=== PATIENT | female | born 1930 | race Caucasian/White ===

== ENCOUNTER 2018-06-06 16:38 | Emergency (ER) | payer MEDICARE, OTHER ==
[~2018-06-06] VITALS: Ht 152.4 cm; Wt 54.4 kg
[~2018-06-06 16:38] MED LIST: AMLODIPINE BESYL5 MG PO; DONEPEZIL HCL10 MG PO; DULOXETINE HCL60 MG PO; FUROSEMIDE20 MG PO; LANTUS SOL100 UNIT/1 SUB-Q; METOPROLOL SUC100 MG PO; TROSPIUM CHLORI20 MG PO; WELCHOL625 MG PO
== END 2018-06-06 18:07 | disposition home or self-care (01) ==
LOC: ED 16:38
DX: S00.01XA Abrasion of scalp, initial encounter (principal); W01.198A Fall on same level from slipping, tripping and stumbling with subsequent striking against other object, initial encounter; E11.9 Type 2 diabetes mellitus without complications; I10 Essential (primary) hypertension; Z79.899 Other long term (current) drug therapy
CPT/HCPCS: 90471; 90714; 99283-25

== ENCOUNTER 2018-07-20 16:45 | Emergency (ER) | payer MEDICARE, OTHER ==
[~2018-07-20] VITALS: Ht 152.4 cm; Wt 54.4 kg
--- NOTE | 2018-07-21 15:39 | EKG ---
[facility] [address] [facility] [place], [place] [address] Signed Sinus rhythm with sinus arrhythmia with 1st degree AV block Right bundle branch block T wave abnormality, consider inferolateral ischemia Abnormal ECG No previous ECGs available Confirmed by ROBI MARLEY DO ([id number]) on 07/21/2018 3:38:56 PM Electronically Signed By: ROBI MARLEY DO 07/21/18 1539 PATIENT NAME: ROSARIO DURHAM [facility] Electrocardiogram DATE OF : [birth year] PHYSICIAN: ROBI MARLEY DO REPORT #: [id number] REPORT IS CONFIDENTIAL AND NOT TO BE RELEASED WITHOUT AUTHORIZATION
== END 2018-07-20 19:15 | disposition home or self-care (01) ==
LOC: ED 16:45
DX: E11.65 Type 2 diabetes mellitus with hyperglycemia (principal); I10 Essential (primary) hypertension; Z90.710 Acquired absence of both cervix and uterus; Z79.899 Other long term (current) drug therapy; W18.30XA Fall on same level, unspecified, initial encounter
CPT/HCPCS: 36415; 80053; 81001; 85025; 87077; 87088; 87186; 93005; 93010; 99284-25

== ENCOUNTER 2019-01-15 16:40 | Emergency (ER) | payer MEDICARE, OTHER | END 2019-01-15 20:05 | disposition home or self-care (01) | LOC: ED 16:40 | PROC: 0HQ0XZZ Repair Scalp Skin, External Approach (ICD-10-PCS; principal; 2019-01-15) | DX: S01.01XA Laceration without foreign body of scalp, initial encounter (principal); W18.30XA Fall on same level, unspecified, initial encounter; E11.9 Type 2 diabetes mellitus without complications; I10 Essential (primary) hypertension; Z79.899 Other long term (current) drug therapy | CPT/HCPCS: 12001; 70450; 85025; 99283-25 ==

== ENCOUNTER 2019-01-24 15:02 | Emergency (ER) | payer MEDICARE, OTHER ==
[~2019-01-24] VITALS: Ht 152.4 cm; Wt 54.4 kg
--- OUTSIDE RECORDS SUMMARY | 2019-01-24 15:04 | XMS ---
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 [facility] has no Care Guidelines for this patient. [place] VISIT COUNT (12 MO.) 4 [facility] [place] [facility] TOTAL 4 NOTE: Visits indicate total known visits. ED/[facility] VISIT TRACKING (12 MO.) 01/24/2019 15:[address] [facility] [place] TYPE: Emergency COMPLAINT: - STAPLE REMOVAL 01/15/2019 16:41 [facility] [place] TYPE: Emergency COMPLAINT: - FALL HEAD INJURY DIAGNOSES: - 1 Type 2 diabetes mellitus without complications - Essential (primary) hypertension - Fall on same level, unspecified, initial encounter - Laceration without foreign body of scalp, initial encounter - Other assisted (current) drug therapy 07/20/2018 16:45 [facility] [place] TYPE: Emergency COMPLAINT: - FALL DIAGNOSES: - Acquired absence of both cervix and uterus - Other meterman (current) drug therapy - Pain in left forearm - 1 Type 2 diabetes mellitus with hyperglycemia - Fall on same level, unspecified, initial encounter - Essential (primary) hypertension 06/06/2018 16:38 [facility] [place] TYPE: Emergency COMPLAINT: - FALL, HEAD LAC DIAGNOSES: - Other assisted (current) drug therapy - Essential (primary) hypertension - Abrasion of scalp, initial encounter - 1 Type 2 diabetes mellitus without complications - Fall same lev from slip[facility] object, init INPATIENT VISIT TRACKING (12 MO.) No inpatient visits to display in this time frame [email or web address]
== END 2019-01-24 15:26 | disposition home or self-care (01) ==
LOC: ED 15:02
DX: S01.01XD Laceration without foreign body of scalp, subsequent encounter (principal)

== ENCOUNTER 2019-04-04 19:54 | Emergency (ER) | payer MEDICARE, OTHER ==
[~2019-04-04] VITALS: Ht 152.4 cm; Wt 54.4 kg
[2019-04-04] MEDS ORDERED: CYMBALTA20 MG PO (23:49)
== END 2019-04-05 00:25 | disposition home or self-care (01) ==
LOC: ED 19:54
DX: M25.552 Pain in left hip (principal); E11.65 Type 2 diabetes mellitus with hyperglycemia; Z79.899 Other long term (current) drug therapy
CPT/HCPCS: 51701; 73502; 80053; 81001; 82010; 82800; 83930; 85025; 99285-25; J7040